=== PATIENT | female | born 1995 | race Caucasian/White ===

== ENCOUNTER 2017-02-21 05:40 | Inpatient (IN) | payer OTHER ==
[~2017-02-21] VITALS: Ht 149.9 cm; Wt 85.0 kg
[2017-02-21] MEDS ORDERED: PRENAT PO (06:04)
[2017-02-21 06:25] VITALS: BP 139/81; PULSE 69; RESP 19; Ht 149.9 cm; Wt 85.0 kg
[2017-02-21] MEDS ORDERED: AMPICILLIN 2 GM/NS (PMX) 100 ML IV ONE (06:30)
[2017-02-21] MEDS ORDERED: METHYLERGONOVINE 0.2 MG INJ IM PRN (06:30)
[2017-02-21] MEDS ORDERED: MISOPROSTOL 200 MCG TAB PR PRN (06:30)
[2017-02-21] MEDS ORDERED: BUTORPHANOL 2 MG INJ IV PRN (06:30)
[2017-02-21] MEDS ORDERED: OXYTOCIN 30 UNITS/LR 500 ML IV PRN (06:30)
[2017-02-21] MEDS ORDERED: OXYTOCIN 30 UNITS/LR 500 ML IV SCH ×3 (06:30→09:00)
[2017-02-21] MEDS ORDERED: LACTATED RINGER'S 1,000 ML IV PRN (06:30)
[2017-02-21] MEDS ORDERED: LIDOCAINE 1% (MPF) 30 ML INJ INJ PRN (06:30)
[2017-02-21] MEDS ORDERED: CARBOPROST 250 MCG INJ IM PRN (06:30)
[2017-02-21] MEDS ORDERED: IBUPROFEN 600 MG TAB PO PRN (06:30)
--- NOTE | 2017-02-21 06:48 | HP ---
Date/Time of Note Date/Time of Note DATE: 02/21/17 TIME: 06:42 OB - History Hx of Present Free Text/Dictation 21-year-old , 1 SAB with at 40 weeks and 2 days with care in [place] presented with complaint of leaking of fluid and she was noted to be ruptured. records are available and reviewed. Had a history of seizure disorder since 1 and half years ago however was not on medication during and denies any seizure episode during . Her GBS status is unknown. Patient was noted to have borderline elevated blood pressure 130s 140s over 80s-90s. Denies any headache, blurred vision or epigastric pain. Noted to have 40 pound weight gain during . 3 hour GTT was normal. : 2 Para: 0 Spontaneous : 1 Care: Good Care Other Concerns: History of seizure disorder denies any seizure episodes during .. Was not on medication. Diagnosed 1 and half years ago. No seizure episodes during . History of chlamydia during , status post treatment, Excess weight gain during . 3 hour GTT normal Past Family/Social History * Past Medical, Surgical, Family and Obstetric Histories reviewed from chart. OB Admission Exam Vital Signs Vital Signs Vital Signs Date Time Temp Pulse Resp B/P Pulse Ox O2 Delivery O2 Flow Rate FiO2 02/21/17 06:25 98.3 69 19 139/81 Room Air Physical Exam HEENT: WNL Lungs: Clear Abdomen: WNL Extremities: Normal Cervical Dilatation: 1cm Effacement: 25% Amniotic Fluid: Clear Heart Rate: 130's Accelerations: Accelerations Present Intensity: Mild OB Assessment/Plan Other Assessment: IUP at 40 + weeks Premature rupture membrane No evidence of labor, patient will be admitted for induction History of seizure disorder. not on meds. No episodes of seizures during Gestational hypertension, asymptomatic. Consider PIH panel Substance abuse during , U tox positive, repeat U tox History of chlamydia during status post treatment GBS unknown Patient will be admitted for induction . risk and benefit discussed DOMINIK SOSA MD Feb 21, 2017 06:48
[2017-02-21] MEDS: LACTATED RINGER'S 1,000 ML IV SCH ×3 (07:35→22:18)
[2017-02-21 08:07] LABS: BASOPHIL # 0.1 10^3/ul (0.0-0.1); BASOPHILS % 0.4 % (0.0-2.0); EOSINOPHILS # 0.2 10^3/ul (0.0-0.5); EOSINOPHILS % 1.8 % (0.0-7.0); HEMATOCRIT 31.1 % (37.0-47.0); HEMOGLOBIN 10.6 g/dl (12.0-16.0); LYMPHOCYTES # 2.8 10^3/ul (0.8-2.9); LYMPHOCYTES % 23.5 % (15.0-51.0); MEAN CORPUSCULAR HEMOGLOBIN 29.8 pg (29.0-33.0); MEAN CORPUSCULAR HGB CONC 34.1 g/dl (32.0-37.0); MEAN CORPUSCULAR VOLUME 87.4 fl (82.0-101.0); MONOCYTES % 8.6 % (0.0-11.0); NEUTROPHILS % 64.2 % (39.0-77.0); PLATELET COUNT 309 10^3/UL (140-415); RED BLOOD COUNT 3.56 10^6/ul (4.20-5.40); RED CELL DISTRIBUTION WIDTH 13.9 % (11.5-14.5); WHITE BLOOD COUNT 11.9 10^3/ul (4.8-10.8)
[2017-02-21 08:11] LABS: ADD UMIC NO; UR ASCORBIC ACID NEGATIVE (NEGATIVE); UR BILIRUBIN (Dip) NEGATIVE (NEGATIVE); UR BLOOD (Dip) NEGATIVE (NEGATIVE); UR CLARITY CLEAR (CLEAR); UR COLOR STRAW (YELLOW); UR GLUCOSE (Dip) NEGATIVE (NEGATIVE); UR KETONES (Dip) NEGATIVE (NEGATIVE); UR LEUKOCYTE ESTERASE (Dip) NEGATIVE Leu/ul (NEGATIVE); UR NITRITE (Dip) NEGATIVE (NEGATIVE); UR SPECIFIC GRAVITY (Dip) 1.012 (1.003-1.030); UR TOTAL PROTEIN (Dip) NEGATIVE (NEGATIVE); UR UROBILINOGEN (Dip) NEGATIVE (NEGATIVE)
[2017-02-21 08:31] LABS: INR 0.91; PROTIME 12.2 Sec (12.2-14.2)
[2017-02-21 08:32] LABS: PARTIAL THROMBOPLASTIN TIME 25.4 Sec (25.0-35.0)
[2017-02-21 08:42] LABS: ALANINE AMINOTRANSFERASE 27 IU/L (13-69); ALBUMIN 3.3 g/dl (3.3-4.9); ALBUMIN/GLOBULIN RATIO 1.03; ALKALINE PHOSPHATASE 338 IU/L (42-121); ANION GAP 17 (8-16); ASPARTATE AMINO TRANSFERASE 20 IU/L (15-46); BLOOD UREA NITROGEN 13 mg/dl (7-20); CALCIUM 8.9 mg/dl (8.4-10.2); CARBON DIOXIDE 20 mmol/L (21-31); CHLORIDE 104 mmol/L (97-110); CREATININE 0.58 mg/dl (0.44-1.00); GLUCOSE 94 mg/dl (70-220); POTASSIUM 4.3 mmol/L (3.5-5.1); SODIUM 137 mmol/L (135-144); TOTAL PROTEIN 6.5 g/dl (6.1-8.1)
[2017-02-21 08:43] LABS: BARBITURATES Negative (NEGATIVE); BENZODIAZEPINES Negative (NEGATIVE); CANNABINOIDS Negative (NEGATIVE); COCAINE Negative (NEGATIVE); OPIATES Negative (NEGATIVE)
--- NOTE | 2017-02-21 10:38 | RADRPT ---
PROCEDURE: US OB. CLINICAL INDICATION: Size and dates TECHNIQUE: Multiple sonographic images of the pelvis and gravid uterus were obtained. The images were reviewed on a PACS workstation. COMPARISON: No prior studies are available for comparison. FINDINGS: The study is very difficult to marked oligohydramnios. There is a single viable intrauterine gestation. Cardiac activity is present with 132 beats per min yurok. There is a vertex presentation. The placenta is posterior, partially visualized. Measurements were made in order to determine age. The results are as follows: BPD =9.1 cm HC =33.3 cm AC =34.3 cm FL =7.3 cm Estimated gestational age of approximately 37 weeks and 5 days based on ultrasound measurements. Clinical age: 40 weeks and 1 day. The estimated date of delivery is 03/09/2017, based on ultrasound measurements. The EFW = 3322 g RPTAT: AA IMPRESSION: Single viable intrauterine gestation of approximately 37 weeks and 5 days based on ultrasound measu rements. Marked oligohydramnios. .Micky López MD, Date Time Electronically viewed and signed by .Micky López MD, on 02/21/2017 07:16 .S/
[2017-02-21] MEDS: AMPICILLIN 1 GM/NS (PMX) 50 ML IV SCH ×3 (12:28→20:34)
[2017-02-21] MEDS ORDERED: FENTAnyl 2MCG/ML-ROPIV 0.2% 100 ML ONE (12:36)
[2017-02-21] MEDS ORDERED: DIPHENHYDRAMINE 50 MG INJ IV PRN (13:30)
[2017-02-21] MEDS ORDERED: NALOXONE (0.4 MG/ML) INJ IV PRN (13:30)
[2017-02-21] MEDS ORDERED: ONDANSETRON 4 MG INJ IV PRN (13:30)
[2017-02-21] MEDS: FENTAnyl 2MCG/ML-ROPIV 0.2% 100 ML BAG EPI SCH ×2 (15:15→21:53)
[2017-02-21] MEDS ORDERED: MINERAL OIL LIGHT 10 ML VIAL TOP ONE (23:30)
[2017-02-22] MEDS: AMPICILLIN 1 GM/NS (PMX) 50 ML IV SCH (00:33)
--- NOTE | 2017-02-22 01:41 | LDN ---
Date/Time of Note Date/Time of Note DATE: 02/22/17 TIME: 01:37 Delivery Summary OP rotate to [facility] of normal male Weeks of Gestation 40w3d Placenta Delivered: Spontaneously Episiotomy: No Perineal laceration: 0 Anesthesia type: Epidural Estimated blood loss: 100 Sponge & Needle done & correct: Yes All needle counts correct: Yes Any foreign bodies felt in the: No Problems: Infant Delivery Information Sex Infant Sex: male Apgars 1 Minute: 9 5 Minute: 9 Suctioning Nose & mouth suctioned at alberto: Yes Delee suction performed: No Umbilical Cord Umbilical cord with: 3 Vessels Cord presentations: no nuchal cord Cord Blood was obtained: Yes Mother & Baby Disposition Disposition Mom & Baby to Maternity; Good: Yes Mom transferred to: Other Baby to NICU: No () MINDA ZIMMER MD Feb 22, 2017 01:41
[2017-02-22] MEDS ORDERED: BENZOCAINE 20% 56 ML SPRAY TOP PRN (04:30)
[2017-02-22] MEDS ORDERED: MISOPROSTOL 200 MCG TAB PR PRN (04:30)
[2017-02-22] MEDS ORDERED: METHYLERGONOVINE 0.2 MG INJ IM PRN (04:30)
[2017-02-22] MEDS ORDERED: LANOLIN 7 GM TUBE TOP PRN (04:30)
[2017-02-22] MEDS ORDERED: ZOLPIDEM 5 MG TAB PO PRN (04:30)
[2017-02-22] MEDS ORDERED: OXYTOCIN 30 UNITS/LR 500 ML IV PRN (04:30)
[2017-02-22] MEDS ORDERED: OXYCODONE/ASPIRIN (4.88/325) TAB PO PRN ×2 (04:30)
[2017-02-22] MEDS ORDERED: WITCH HAZEL/GLYCERIN PAD PR PRN (04:30)
[2017-02-22] MEDS ORDERED: CARBOPROST 250 MCG INJ IM PRN (04:30)
[2017-02-22 05:12] VITALS: BP 105/56; PULSE 76; RESP 18
[2017-02-22] MEDS ORDERED: LACTATED RINGER'S 1,000 ML IV SCH (06:30)
[2017-02-22] MEDS: IBUPROFEN 600 MG TAB PO SCH ×4 (06:53→23:34)
[2017-02-22 07:58] VITALS: BP 115/68; PULSE 78
[2017-02-22] MEDS: SENNA/DOCUSATE NA (8.6MG/50MG) TAB PO SCH ×2 (08:48→21:02)
[2017-02-22 13:20] LABS: RUBELLA ANTIBODY - IGG 4.15 index
[2017-02-22 16:04] VITALS: BP 119/71; RESP 16
[2017-02-22 18:11] VITALS: BP 122/73; PULSE 78; RESP 16
[2017-02-22 20:05] VITALS: BP 141/73; PULSE 85; RESP 18
[2017-02-23 03:45] VITALS: BP 120/76; PULSE 73; RESP 20
[2017-02-23] MEDS: IBUPROFEN 600 MG TAB PO SCH ×3 (05:38→18:47)
[2017-02-23 08:10] VITALS: BP 115/77; PULSE 65; RESP 16
[2017-02-23] MEDS: SENNA/DOCUSATE NA (8.6MG/50MG) TAB PO SCH ×2 (08:42→21:56)
[2017-02-23 10:20] LABS: BASOPHIL # 0.1 10^3/ul (0.0-0.1); BASOPHILS % 0.3 % (0.0-2.0); EOSINOPHILS # 0.3 10^3/ul (0.0-0.5); EOSINOPHILS % 1.6 % (0.0-7.0); HEMATOCRIT 31.1 % (37.0-47.0); HEMOGLOBIN 10.1 g/dl (12.0-16.0); LYMPHOCYTES # 3.9 10^3/ul (0.8-2.9); LYMPHOCYTES % 20.7 % (15.0-51.0); MEAN CORPUSCULAR HEMOGLOBIN 28.9 pg (29.0-33.0); MEAN CORPUSCULAR HGB CONC 32.5 g/dl (32.0-37.0); MEAN CORPUSCULAR VOLUME 88.9 fl (82.0-101.0); MEAN PLATELET VOLUME 10.6 fl (7.4-10.4); MONOCYTE # 1.1 10^3/ul (0.3-0.9); MONOCYTES % 5.8 % (0.0-11.0); NEUTROPHILS % 70.3 % (39.0-77.0); PLATELET COUNT 291 10^3/UL (140-415); RED CELL DISTRIBUTION WIDTH 14.7 % (11.5-14.5)
--- NOTE | 2017-02-23 10:33 | QN ---
Documentation Comment Progress Note PPD #1 Pt doing well and is w/o complaints. w/o a problem. T=97.7 BP 115/77 Fundus firm. Lochia minimal. Ext 1+ edema. CBC pending. P: Continue care. Plan D/C tomorrrow. OLIVA IGLESIAS MD Feb 23, 2017 10:33
[2017-02-23 16:58] VITALS: BP 123/75; PULSE 77; RESP 14
[2017-02-23 20:10] VITALS: BP 112/62; PULSE 72; RESP 18
[2017-02-24] MEDS: IBUPROFEN 600 MG TAB PO SCH ×3 (00:28→12:17)
[2017-02-24 03:55] VITALS: BP 121/73; PULSE 73; RESP 18
[2017-02-24 08:12] VITALS: BP 124/76; PULSE 61; RESP 16
[2017-02-24] MEDS: SENNA/DOCUSATE NA (8.6MG/50MG) TAB PO SCH (08:34)
[2017-02-24] MEDS ORDERED: DIPHTH/TET/ACEL PERTUSS (ADULT) 0.5 ML VIAL IM* ONE (09:00)
[2017-02-24 10:26] LABS: BASOPHIL # 0.1 10^3/ul (0.0-0.1); BASOPHILS % 0.4 % (0.0-2.0); EOSINOPHILS # 0.4 10^3/ul (0.0-0.5); EOSINOPHILS % 2.7 % (0.0-7.0); HEMATOCRIT 27.9 % (37.0-47.0); HEMOGLOBIN 9.5 g/dl (12.0-16.0); LYMPHOCYTES # 3.4 10^3/ul (0.8-2.9); LYMPHOCYTES % 22.9 % (15.0-51.0); MEAN CORPUSCULAR HGB CONC 34.1 g/dl (32.0-37.0); MEAN PLATELET VOLUME 10.3 fl (7.4-10.4); MONOCYTE # 0.9 10^3/ul (0.3-0.9); MONOCYTES % 5.9 % (0.0-11.0); NEUTROPHILS % 66.9 % (39.0-77.0); PLATELET COUNT 307 10^3/UL (140-415); RED BLOOD COUNT 3.17 10^6/ul (4.20-5.40); RED CELL DISTRIBUTION WIDTH 14.4 % (11.5-14.5)
--- NOTE | 2017-02-24 11:29 | QN ---
Documentation Comment Ppd#2 is stable afebrile No Vb +BM +voids Vs Stable Gen NAD Abd soft NT ND Genitalia No blood at perinium --.DISCHARGE hOME SG DIAZ M.D. Feb 24, 2017 11:28
--- NOTE | 2017-03-13 15:56 | DS ---
Date/Time of Note Date/Time of Note DATE: 03/13/17 TIME: 15:55 Discharge Summary Admission/Discharge Info Admit Date/Time Feb 21, 2017 at 06:05 Discharge Date/Time Feb 24, 2017 at 14:52 Discharge Diagnosis Patient Condition: Good Procedures vaginal delivery Hospital Course uneventful Home Meds Reported Medications Multivit/Min/Fol Ac/Iron/Pren* ( S*) 1 Tab Tab, 1 TAB PO DAILY, TAB 02/21/17 Primary Care Provider Not On Staff Doctor SG DIAZ M.D. Mar 13, 2017 15:56
== END 2017-02-24 14:52 | disposition home or self-care (01) | DRG 775 ==
LOC: L-D 05:40 → OBT 05:40 → L-D 06:05 → OBT 06:05 → PP1 02-22 17:56
PROVIDERS: ADMIT Obstetrics & Gynecology Obstetrics; ATTEND Obstetrics & Gynecology Obstetrics
PROC: 10E0XZZ Delivery of Products of Conception, External Approach (ICD-10-PCS; principal; 2017-02-22)
PROC: 3E033VJ Introduction of Other Hormone into Peripheral Vein, Percutaneous Approach (ICD-10-PCS; 2017-02-22)
DX: O48.0 Post-term pregnancy (principal); Z37.0 Single live birth; Z3A.40 40 weeks gestation of pregnancy
CPT/HCPCS: 62319; 76815; 80053; 80307; 81003; 83036; 84560; 85025; 85384; 85610; 85730; 86592; 86762; 86900; 86901; 87340; 90715; 99464; G0463; J0290; J0595; J2590; J3010; J7120